=== PATIENT | male | born 1980 | race Caucasian/White ===

== ENCOUNTER → 2020-02-24 | Outpatient (CLI) | payer BC ==
--- NOTE | 2020-02-24 14:28 | Diagnostic Imaging Report ---
PROCEDURE: CT head without contrast. TECHNIQUE: Multiple contiguous axial images were obtained through the brain without the use of intravenous contrast. Auto Exposure Controls were utilized during the CT exam to meet ALARA standards for radiation dose reduction. INDICATION: CT head without contrast. COMPARISON: None. FINDINGS: No intracranial hemorrhage, mass effect, hydrocephalus or extra-axial fluid collections. No CT evidence of a territorial infarction. Osseous structures are intact. The orbits are completely included within the exam and demonstrate normal morphology with no suspicious mass or edema. Osseous structures are intact. Mild mucosal thickening in the floor of the right maxillary sinus was partially visualized. The mastoids are clear. IMPRESSION: 1. Negative head CT. 2. Negative orbits on this noncontrast exam. 3. Mild mucosal thickening in the floor of the right maxillary sinus is partially visualized. Dictated by: Dictated on workstation # [id number]
== END ==
LOC: RAD 13:45
PROVIDERS: ATTEND Optometrist
DX: J32.0 Chronic maxillary sinusitis (principal)
CPT/HCPCS: 70450

== ENCOUNTER 2020-03-09 08:05 | Outpatient (RCR) | payer BC ==
[2020-03-07] MEDS: methylPREDNISolone SOD SUCC 1,000 MG in NS (IVPB) 100 ML IV SCH (09:20)
[2020-03-07 10:45] VITALS: BP 112/78
[2020-03-08] MEDS: methylPREDNISolone SOD SUCC 1,000 MG in NS (IVPB) 100 ML IV SCH (08:17)
[2020-03-08 09:15] VITALS: BP 127/82
[~2020-03-09] VITALS: Ht 180.3 cm; Wt 136.4 kg
[2020-03-09 08:05] VITALS: BP 134/83
[2020-03-09] MEDS: methylPREDNISolone SOD SUCC 1,000 MG in NS (IVPB) 100 ML IV SCH (08:28)
== END 2020-03-09 09:35 | disposition home or self-care (01) ==
LOC: SDC 08:05
PROVIDERS: ATTEND Ophthalmology
DX: H46.02 Optic papillitis, left eye (principal); H46.8 Other optic neuritis
CPT/HCPCS: 96365